=== PATIENT | female | born 1955 | race Caucasian/White ===

== ENCOUNTER 2020-04-17 17:32 | Emergency (ER) | payer BC ==
[2020-04-17] MEDS ORDERED: HYDROcodone 5MG/APAP 325MG 1 EA TAB PO ONE (18:01)
[2020-04-17] MEDS ORDERED: SODIUM CHLORIDE 0.9% 1000ML 1,000 ML IVS ONE (18:25)
[2020-04-17] MEDS ORDERED: KETOROLAC TROMETHAMINE INJ 30 MG/ML VIAL IV ONE (18:25)
[2020-04-17] MEDS ORDERED: METOCLOPRAMIDE HCL INJ 10 MG/2 ML VIAL IV ONE (18:25)
[2020-04-17] MEDS ORDERED: diphenhydrAMINE HCL 50 MG/ML VIAL IV ONE (18:26)
--- NOTE | 2020-04-17 18:27 | ED.PDOC ---
History of Present Illness - General Time Seen by Provider: 04/17/20 17:58 Source: RN notes reviewed, Vital Signs reviewed, family Exam Limitations: no limitations - History of Present Illness Initial Comments: Patient is a 65-year-old female who presents to ED with 4-day history of a headache. States she has a history of migraines, but has not had a migraine in over 5 years. The headache began on Sunday and felt like an ice pick that with stab in the top of her head about every 6 seconds. She has taken Excedrin, Tylenol, ibuprofen and Imitrex with some relief. Today she took 2 tramadol then became nauseated so came to ED for evaluation. She denies fever, neck stiffness, vision changes, vomiting, weakness or difficult speech. Allergies/Adverse Reactions: Allergies Lansoprazole [From Prevacid] Allergy (Verified 04/17/20 18:15) Home Medications: Ambulatory Orders Meloxicam [Vivlodex] 10 mg PO DAILY 04/17/20 Review of Systems - Review of Systems Constitutional: Denies: chills, fever, weakness EENTM: Denies: blurred vision, double vision, nose congestion, throat pain Respiratory: Denies: cough, short of breath Cardiology: Denies: chest pain, palpitations, syncope Gastrointestinal/Abdominal: States: nausea. Denies: abdominal pain, vomiting Genitourinary: States: no symptoms reported Musculoskeletal: Denies: back pain, neck pain Skin: States: no symptoms reported Neurological: States: headache. Denies: numbness, paresthesia, weakness Hematologic/Lymphatic: States: no symptoms reported All other Systems: Reviewed and Negative Family Medical History - Family History Mother Family History: No Known Living Status: Unknown Physical Exam - Physical Exam General Appearance: Alert, Comfortable, Other - Lying in bed with sunglasses on. No acute distress. Eyes, Ears, Nose, Throat Exam: PERRL/EOMI Neck: non-tender, full range of motion, supple, other - No meningismus Cardiovascular/Respiratory: regular rate, rhythm, normal peripheral pulses, normal breath sounds, no respiratory distress Abdominal Exam: non-tender Back Exam: no vertebral tenderness Mental Status: alert, oriented x 3 Comments: Patient is alert and oriented x4. She has no cranial nerve deficits. Strength is 5 out of 5 in all extremities. Speech is fluent and conversational. Progress - Progress Progress: 04/17/20 19:44 Recheck patient. Resting comfortably. Pain has resolved. Pt feels comfortabl going home and f/u with pcp in 1-2 days for recheck. SRP given - Results/Orders Results/Orders: CT HEAD WITHOUT IV CONTRAST HISTORY: Headache, nausea. COMPARISON: None. TECHNIQUE: CT scan of the brain was performed without IV contrast. This exam was performed according to our departmental dose-optimization program, which includes automated exposure control, adjustment of the mA and/or kV according to patient size and/or use of iterative reconstruction technique. FINDINGS: The ventricles, cisterns, and sulci are age-appropriate. No evidence of acute infarction, intracranial hemorrhage, extra-axial fluid collection, or midline shift. No air-fluid levels are seen in the paranasal sinuses to suggest acute sinusitis. No depressed skull fracture. IMPRESSION: No acute intracranial findings. Laboratory Results - last 24 hr 04/17/20 04/17/20 18:35 18:35 WBC 5.8 RBC 5.09 Hgb 15.3 Hct 45.8 MCV 90.0 MCH 30.1 MCHC 33.5 RDW 12.3 Plt Count 181 MPV 9.0 Absolute Neuts (auto) 3.90 Absolute Lymphs (auto) 1.10 Absolute Monos (auto) 0.70 Absolute Eos (auto) 0.00 Absolute Basos (auto) 0.10 Neutrophils % 67.1 Lymphocytes % 19.4 L Monocytes % 12.2 H Eosinophils % 0.4 L Basophils % 0.9 Sodium 136 Potassium 4.0 Chloride 103 Carbon Dioxide 25 Anion Gap 12.0 BUN 16 Creatinine 0.65 BUN/Creatinine Ratio 24.6 H Random Glucose 102 Serum Osmolality 273.3 L Calcium 9.3 Departure - Departure Clinical Impression: Headache, Nausea Time of Disposition: 19:43 Disposition: Discharge to Home or Self Care Condition: Good Departure Forms: ED Discharge - Pt. Copy, Patient Portal Self Enrollment Instructions: Headache, Adult (DC) Diet: resume usual diet Activity: increase activity as tolerated Home Medications: Ambulatory Orders Meloxicam [Vivlodex] 10 mg PO DAILY 04/17/20 Additional Instructions: Follow up with your PCP in 1-2 days for recheck.
--- NOTE | 2020-04-17 18:58 | CT ---
CT HEAD WITHOUT IV CONTRAST HISTORY: Headache, nausea. COMPARISON: None. TECHNIQUE: CT scan of the brain was performed without IV contrast. This exam was performed according to our departmental dose-optimization program, which includes automated exposure control, adjustment of the mA and/or kV according to patient size and/or use of iterative reconstruction technique. FINDINGS: The ventricles, cisterns, and sulci are age-appropriate. No evidence of acute infarction, intracranial hemorrhage, extra-axial fluid collection, or midline shift. No air-fluid levels are seen in the paranasal sinuses to suggest acute sinusitis. No depressed skull fracture. IMPRESSION: No acute intracranial findings. Electronically signed by: Richard Lam MD 04/17/2020 6:56 PM CDT
[2020-04-17 20:05] VITALS: BP 138/84; TEMP 98; O2SAT 94
== END 2020-04-17 20:14 | disposition home or self-care (01) ==
LOC: ER 17:32
DX: R51 Headache (principal); R11.0 Nausea
CPT/HCPCS: 70450; 80048; 85025; J1200; J1885; J2765; J7030